=== PATIENT | female | born 1960 | race Caucasian/White ===

== ENCOUNTER 2021-04-14 09:54 | Outpatient (CLI) | payer OTHER ==
[~2021-04-14] VITALS: Ht 167.6 cm; Wt 77.1 kg
[2021-04-14] MEDS ORDERED: CASIRIVIMAB/IMDEVIMAB 1,200 MG in NS (IVPB) 250 ML IV ONE (10:00)
[2021-04-14] MEDS ORDERED: ONDANSETRON 4 MG/2 ML (SDV) Z0FRAN IV PRN (10:00)
[2021-04-14] MEDS ORDERED: ACETAMINOPHEN 500 MG TAB (TYLENOL) PO PRN (10:00)
[2021-04-14] MEDS ORDERED: diphenhydrAMINE 50 MG/ML INJ (BENADRYL) IV PRN (10:00)
[2021-04-14] MEDS ORDERED: EPINEPHrine INJECTION 1 MG/ML AMP IM PRN (10:00)
[2021-04-14 10:35] VITALS: BP 137/69
[2021-04-14 11:43] VITALS: BP 116/72
== END 2021-04-14 11:45 | disposition home or self-care (01) ==
LOC: INFUSION 09:54
PROVIDERS: ATTEND Family Medicine
DX: U07.1 COVID-19 (principal)